=== PATIENT | female | born 1940 | race Caucasian/White ===

== ENCOUNTER 2018-04-26 15:16 | Emergency (ER) | payer MEDICARE, BC ==
[~2018-04-26] VITALS: Ht 170.2 cm; Wt 70.9 kg
[2018-04-26 15:42] LABS: BASOPHILS % (AUTO) 0.3 % (0-1); EOSINOPHILS # (AUTO) 0.4 X10'3 (0-0.9); EOSINOPHILS % (AUTO) 4.3 % (0-6); HEMATOCRIT 32.9 % (35.0-45.0); HEMOGLOBIN 10.8 g/dl (12.0-16.0); LYMPHOCYTES # (AUTO) 1.5 X10'3 (1.1-4.8); LYMPHOCYTES % (AUTO) 17.6 % (21-51); MEAN CORPUSCULAR HEMOGLOBIN 28.5 PG (27.0-31.0); MEAN CORPUSCULAR HGB CONC 32.8 % (33.0-36.5); MEAN CORPUSCULAR VOLUME 86.8 FL (78-98); MEAN PLATELET VOLUME 8.5 FL (7.4-10.4); MONOCYTES # (AUTO) 0.7 X10'3 (0-0.9); MONOCYTES % (AUTO) 8.5 % (2-12); NEUTROPHILS # (AUTO) 5.7 X10'3 (1.8-7.7); NEUTROPHILS % (AUTO) 69.3 % (42-75); PLATELET COUNT 312 X10'3 (140-440); RED BLOOD COUNT 3.79 X10'6 (4.20-5.60); RED CELL DISTRIBUTION WIDTH 13.3 % (11.5-14.5); WHITE BLOOD COUNT 8.3 X10'3 (4.5-11.0)
[2018-04-26 15:53] LABS: INR 1.1 INR; PARTIAL THROMBOPLASTIN TIME 31 SECONDS (22-32); PROTHROMBIN TIME 10.9 SECONDS (9.0-12.0)
[2018-04-26 16:00] LABS: ALANINE AMINOTRANSFERASE 25 U/L (12-78); ALBUMIN 2.8 G/DL (3.4-5.0); ALBUMIN/GLOBULIN RATIO 0.7 (1.1-1.5); ALKALINE PHOSPHATASE 85 IU/L (46-116); ANION GAP 10 (8-16); ASPARTATE AMINO TRANSFERASE 18 U/L (10-37); BILIRUBIN,TOTAL 0.4 MG/DL (0.1-1.0); BLOOD UREA NITROGEN 10 MG/DL (7-18); CALCIUM 9.2 MG/DL (8.5-10.1); CHLORIDE 99 MMOL/L (99-107); CREATININE 0.77 MG/DL (0.40-0.90); GLUCOSE 112 MG/DL (70-104); POTASSIUM 4.1 MMOL/L (3.5-5.1); SODIUM 136 MMOL/L (135-145); TOTAL CARBON DIOXIDE 27.4 MMOL/L (24-32); eGFR 72 ML/MIN
[2018-04-26 18:19] LABS: GLUCOSE,BODY FLUID 91 MG/DL; TOTAL PROTEIN,BODY FLUID 4.5 G/DL
[2018-04-26 18:32] LABS: BFAPPEAR BLOODY
[2018-04-26 18:33] LABS: BF RBC COUNT 109750 /CU MM; BF WBC COUNT 1650 /CU MM (0-1000); BFCOLOR RED; BFVOLUME 52 ML; LYMPHOCYTES,BODY FLUID 94 %; MONOCYTES,BODY FLUID 2 %; NEUTROPHILS,BODY FLUID 4 %
[2018-04-26 18:35] VITALS: BP 126/76
== END 2018-04-26 18:39 | disposition home or self-care (01) ==
LOC: ER 15:18
DX: J90 Pleural effusion, not elsewhere classified (principal); C34.90 Malignant neoplasm of unspecified part of unspecified bronchus or lung; Z90.89 Acquired absence of other organs; Z98.890 Other specified postprocedural states; Z90.49 Acquired absence of other specified parts of digestive tract; Z87.891 Personal history of nicotine dependence
CPT/HCPCS: 32555; 36415; 71045; 80053; 82945; 83605; 83986; 84145; 84157; 84439; 84443; 84484; 85025; 85610; 85730; 87040; 87070; 89051; 93005; 99285

== ENCOUNTER 2018-05-01 07:47 | Day surgery (SDC) | payer MEDICARE, BC ==
[~2018-05-01] VITALS: Ht 170.2 cm; Wt 67.1 kg
[2018-05-01 08:10] VITALS: BP 104/68
[2018-05-01] MEDS ORDERED: MULT-1133 PO (08:18)
[2018-05-01] MEDS ORDERED: CYAN1TAB41 PO (08:18)
[2018-05-01] MEDS ORDERED: LACT1CAP65 PO (08:18)
[2018-05-01] MEDS ORDERED: MAGN400C PO (08:18)
[2018-05-01] MEDS ORDERED: LIDOcaine 1%/PF 5ML 10 MG/ML VIAL SQ ONE (08:25)
[2018-05-01 08:41] VITALS: BP 112/77
== END 2018-05-01 09:05 | disposition home or self-care (01) ==
LOC: SSTAY O 07:47
PROVIDERS: ATTEND Radiology Vascular & Interventional Radiology
DX: J90 Pleural effusion, not elsewhere classified (principal); Z53.8 Procedure and treatment not carried out for other reasons; Z90.710 Acquired absence of both cervix and uterus; Z90.89 Acquired absence of other organs; Z87.891 Personal history of nicotine dependence; Z85.118 Personal history of other malignant neoplasm of bronchus and lung; Z79.899 Other long term (current) drug therapy; Z98.890 Other specified postprocedural states
CPT/HCPCS: 76604; J2001

== ENCOUNTER 2018-05-08 08:32 | Day surgery (SDC) | payer MEDICARE, BC ==
[~2018-05-08] VITALS: Ht 170.2 cm; Wt 67.9 kg
[~2018-05-08 08:32] MED LIST: CYAN1TAB41 PO; LACT1CAP65 PO; LIDOcaine 1%/PF 5ML 10 MG/ML VIAL SQ ONE; MAGN400C PO; MULT-1133 PO
[2018-05-08 08:55] VITALS: BP 114/71
[2018-05-08 09:30] VITALS: BP 114/71
[2018-05-08 09:35] VITALS: BP 125/86
[2018-05-08] MEDS ORDERED: CHOL100046 PO (09:43)
[2018-05-08] MEDS ORDERED: FISH12002 PO (09:43)
[2018-05-08 09:54] VITALS: BP 120/79
== END 2018-05-08 09:55 | disposition home or self-care (01) ==
LOC: SSTAY O 08:32
PROVIDERS: ATTEND Radiology Diagnostic Radiology
DX: C34.92 Malignant neoplasm of unspecified part of left bronchus or lung (principal); Z85.118 Personal history of other malignant neoplasm of bronchus and lung; Z90.710 Acquired absence of both cervix and uterus; Z79.899 Other long term (current) drug therapy; Z87.891 Personal history of nicotine dependence; Z90.49 Acquired absence of other specified parts of digestive tract
CPT/HCPCS: 32555; 71045; J2001

== ENCOUNTER 2019-04-14 09:46 | Inpatient (IN) | payer MEDICARE, BC ==
[~2019-04-14] VITALS: Ht 170.2 cm; Wt 72.0 kg
[~2019-04-14 09:46] MED LIST changes: +CHOL100046 PO; +FISH12002 PO; -LIDOcaine 1%/PF 5ML 10 MG/ML VIAL SQ ONE
[2019-04-14] MEDS ORDERED: normal saline 1000ML IV soln IVB ONE (10:00)
[2019-04-14] MEDS ORDERED: famotidine/PF 10 mg/ml inj IV ONE (10:00)
[2019-04-14] MEDS ORDERED: diphenhydrAMINE 50 mg/ml inj IV ONE (10:00)
[2019-04-14 11:07] LABS: BASOPHILS # (AUTO) 0.1 X10'3 (0-0.2); BASOPHILS % (AUTO) 0.7 % (0-1); HEMOGLOBIN 7.3 g/dl (12.0-16.0); LYMPHOCYTES # (AUTO) 1.2 X10'3 (1.1-4.8); MEAN PLATELET VOLUME 8.9 FL (7.4-10.4); MONOCYTES # (AUTO) 0.4 X10'3 (0-0.9); NEUTROPHILS # (AUTO) 7.6 X10'3 (1.8-7.7); WHITE BLOOD COUNT 9.4 X10'3 (4.5-11.0)
[2019-04-14 11:09] LABS: EOSINOPHILS % (AUTO) 0.5 % (0-6); HEMATOCRIT 22.4 % (35.0-45.0); LYMPHOCYTES % (AUTO) 12.7 % (21-51); MEAN CORPUSCULAR HEMOGLOBIN 36.1 PG (27.0-31.0); MEAN CORPUSCULAR HGB CONC 32.5 g/dL (33.0-36.5); MEAN CORPUSCULAR VOLUME 111.1 FL (78-98); MONOCYTES % (AUTO) 4.7 % (2-12); NEUTROPHILS % (AUTO) 81.4 % (42-75); PLATELET COUNT 225 X10'3 (140-440); RED BLOOD COUNT 2.02 X10'6 (4.20-5.60); RED CELL DISTRIBUTION WIDTH 12.7 % (11.5-14.5)
[2019-04-14 11:30] LABS: ALANINE AMINOTRANSFERASE 32 U/L (12-78); ALBUMIN 3.5 G/DL (3.4-5.0); ALBUMIN/GLOBULIN RATIO 1.2 (1.1-1.5); ALKALINE PHOSPHATASE 42 IU/L (46-116); ANION GAP 8 (8-16); ASPARTATE AMINO TRANSFERASE 19 U/L (10-37); BILIRUBIN,TOTAL 0.6 MG/DL (0.1-1.0); BLOOD UREA NITROGEN 21 MG/DL (7-18); BUN/CREATININE RATIO 9.9 (6.6-38.0); CHLORIDE 104 MMOL/L (99-107); CREATININE 2.13 MG/DL (0.40-0.90); GLUCOSE 102 MG/DL (70-104); POTASSIUM 3.7 MMOL/L (3.5-5.1); SODIUM 139 MMOL/L (135-145); TOTAL CARBON DIOXIDE 26.9 MMOL/L (24-32); TOTAL PROTEIN 6.4 G/DL (6.4-8.2); eGFR 22 ML/MIN
[2019-04-14 11:36] LABS: PLATELET ESTIMATE NORMAL
[2019-04-14 11:40] LABS: HYPOCHROMASIA 1+
[2019-04-14] MEDS ORDERED: methylPREDNISolone sod succ 125mg/2ml vial IV ONE (12:15)
[2019-04-14 12:29] LABS: CLARITY,URINE CLEAR (Clear); COLOR,URINE YELLOW (Yellow); GLUCOSE, URINE NEGATIVE (Neg); KETONES,URINE NEGATIVE (Neg); LEUKOCYTE ESTERASE ,URINE SMALL (Neg); NITRITES, URINE NEGATIVE (Neg); OCCULT BLOOD,URINE NEGATIVE (Neg); PH,URINE 7.5 (4.8-8.0); PROTEIN,URINE NEGATIVE (Neg); UA COLLECTION TYPE CLN CATCH MIDSTREAM; UROBILINOGEN,URINE 0.2 E.U/dL (0.2-1.0)
[2019-04-14 12:37] LABS: BACTERIA,URINE FEW /HPF (Neg); MUCUS STRANDS NONE SEEN /LPF (Neg); RBC,URINE NONE SEEN /HPF (0-2); SQUAMOUS EPITHELIAL CELL,UR FEW /LPF (FEW); WBC,URINE 0-4 /HPF (0-4)
[2019-04-14] MEDS ORDERED: MULT-1180 PO (13:54)
[2019-04-14] MEDS ORDERED: DAPS100T2 PO (13:56)
[2019-04-14] MEDS ORDERED: LORA10TA7 PO (13:56)
[2019-04-14] MEDS ORDERED: MAGN400C PO (13:57)
[2019-04-14] MEDS ORDERED: POLY17PO10 PO (13:58)
[2019-04-14] MEDS ORDERED: OMEP20CA11 PO (13:59)
[2019-04-14] MEDS ORDERED: LACT1CAP65 PO (14:00)
[2019-04-14] MEDS ORDERED: CHOL10002 PO (14:01)
[2019-04-14] MEDS ORDERED: SODI650T29 PO (14:01)
[2019-04-14] MEDS ORDERED: WHEA98PO PO (14:02)
[2019-04-14] MEDS ORDERED: PRED10TA23 PO ×2 (14:07→14:12)
[2019-04-14] MEDS ORDERED: PRED5TAB49 PO (14:13)
[2019-04-14] MEDS ORDERED: FURO-150 PO (14:19)
[2019-04-14] MEDS ORDERED: magnesium 4gm in 100ml NS 100 ML IV PRN (14:20)
[2019-04-14] MEDS ORDERED: HYDROcodone/acetaminophen 5mg/325mg tablet PO PRN (14:20)
[2019-04-14] MEDS ORDERED: diphenhydrAMINE 50 mg/ml inj IV PRN (14:20)
[2019-04-14] MEDS: K and/or MAG REPLACEMENT MC SCH (14:20)
[2019-04-14] MEDS ORDERED: HYDROcodone/acetaminophen 10/325mg tab PO PRN (14:20)
[2019-04-14] MEDS ORDERED: magnesium Cl slow-release 64mg tablet PO PRN (14:20)
[2019-04-14] MEDS ORDERED: morphine 2 MG/ML inj. syringe IV PRN ×2 (14:20)
[2019-04-14] MEDS ORDERED: acetaminophen 325mg tablet PO PRN ×2 (14:20)
[2019-04-14] MEDS ORDERED: mag hydrox/Alum hydrox/simeth 30ml oral suspension PO PRN (14:20)
[2019-04-14] MEDS ORDERED: potassium Cl 40MEQ/NS 500ml 500 ML IV PRN (14:20)
[2019-04-14] MEDS ORDERED: magnesium 2GM in 50ml NS 50 ML IV PRN (14:20)
[2019-04-14] MEDS ORDERED: potassium Cl 20 mEq SR tablet PO PRN ×2 (14:20)
[2019-04-14] MEDS ORDERED: potassium CL 10mEq/100ml bag 100 ML IV PRN (14:20)
[2019-04-14] MEDS ORDERED: ondansetron/PF 4mg/2ml inj IV PRN (14:20)
[2019-04-14] MEDS ORDERED: magnesium hydroxide 30ml (MOM) UD suspension PO PRN (14:20)
[2019-04-14] MEDS ORDERED: diphenhydrAMINE 25mg capsule PO PRN (14:20)
[2019-04-14] MEDS ORDERED: ACET500C5 PO (14:22)
[2019-04-14] MEDS ORDERED: ONDA8TAB12 PO (14:23)
[2019-04-14] MEDS ORDERED: BISM262T15 PO (14:24)
[2019-04-14] MEDS ORDERED: DOCU100T9 PO (14:25)
[2019-04-14] MEDS ORDERED: bismuth subsalicylate 262mg chew tablet PO PRN (14:30)
[2019-04-14] MEDS ORDERED: non-formulary drug (Ondansetron HCl 1 TAB) PO PRN (14:30)
[2019-04-14] MEDS ORDERED: non-formulary drug (Acetaminophen (Mapap) 1 CAP) PO PRN (14:30)
[2019-04-14] MEDS ORDERED: DOCUSATE SODIUM PO PRN (14:30)
[2019-04-14] MEDS ORDERED: ondansetron 4mg rapidly disintigrating tab PO PRN (14:35)
[2019-04-14] MEDS ORDERED: psyllium seed 3.4 gm packet PO PRN (14:35)
[2019-04-14] MEDS ORDERED: docusate sod 100mg capsule PO PRN (14:40)
[2019-04-14] MEDS: normal saline 1000ml 1,000 ML IV SCH (15:23)
--- NOTE | 2019-04-14 17:24 | NUR ---
Patient arrived to room 347A. Oriented to call light, bed controls, TV. Received report from charge nurse Tequila MCKEE.
[2019-04-14 17:34] VITALS: BP 147/84
[2019-04-14] MEDS: diphenhydrAMINE 25mg capsule PO SCH (17:38)
--- NOTE | 2019-04-14 18:31 | NUR ---
Problems reprioritized. Patient report given, questions answered & plan of care reviewed with Analy MCKEE.
[2019-04-14 20:00] VITALS: BP 143/75
[2019-04-14] MEDS ORDERED: famotidine 10mg/ml inj IV SCH (20:00)
[2019-04-14] MEDS ORDERED: temazepam 15mg capsule PO PRN (21:00)
[2019-04-14] MEDS: methylPREDNISolone sod succ 125mg/2ml vial IV SCH (21:11)
[2019-04-14] MEDS: sodium bicarbonate 650mg tablet PO SCH (21:11)
[2019-04-14] MEDS: heparin, porcine 5000 units/ml vial SQ SCH (21:11)
[2019-04-15] VITALS (16 sets, daily range): BP systolic 136–194; BP diastolic 70–108
[2019-04-15] MEDS: diphenhydrAMINE 25mg capsule PO SCH ×3 (00:34→15:47)
[2019-04-15] MEDS: normal saline 1000ml 1,000 ML IV SCH ×3 (01:40→11:08)
[2019-04-15] MEDS: methylPREDNISolone sod succ 125mg/2ml vial IV SCH ×4 (01:40→20:47)
[2019-04-15 05:13] LABS: EOSINOPHILS % (AUTO) 0.1 % (0-6); HEMOGLOBIN 7.1 g/dl (12.0-16.0); LYMPHOCYTES # (AUTO) 1.1 X10'3 (1.1-4.8); MEAN PLATELET VOLUME 9.6 FL (7.4-10.4); MONOCYTES # (AUTO) 0.1 X10'3 (0-0.9); RED BLOOD COUNT 1.95 X10'6 (4.20-5.60)
[2019-04-15 05:14] LABS: BASOPHILS % (AUTO) 0.6 % (0-1); LYMPHOCYTES % (AUTO) 24.6 % (21-51); MEAN CORPUSCULAR HEMOGLOBIN 36.5 PG (27.0-31.0); MEAN CORPUSCULAR HGB CONC 32.7 g/dL (33.0-36.5); MEAN CORPUSCULAR VOLUME 111.8 FL (78-98); MONOCYTES % (AUTO) 1.8 % (2-12); NEUTROPHILS # (AUTO) 3.3 X10'3 (1.8-7.7); NEUTROPHILS % (AUTO) 72.9 % (42-75); PLATELET COUNT 210 X10'3 (140-440); WHITE BLOOD COUNT 4.5 X10'3 (4.5-11.0)
[2019-04-15 05:21] LABS: ALANINE AMINOTRANSFERASE 31 U/L (12-78); ALBUMIN 3.3 G/DL (3.4-5.0); ALBUMIN/GLOBULIN RATIO 1.1 (1.1-1.5); ALKALINE PHOSPHATASE 43 IU/L (46-116); ANION GAP 10 (8-16); ASPARTATE AMINO TRANSFERASE 14 U/L (10-37); BILIRUBIN,TOTAL 0.4 MG/DL (0.1-1.0); BLOOD UREA NITROGEN 24 MG/DL (7-18); BUN/CREATININE RATIO 11.9 (6.6-38.0); CALCIUM 8.3 MG/DL (8.5-10.1); CHLORIDE 106 MMOL/L (99-107); CREATININE 2.01 MG/DL (0.40-0.90); GLUCOSE 154 MG/DL (70-104); MAGNESIUM 2.2 MG/DL (1.5-2.4); PHOSPHORUS 4.3 MG/DL (2.3-4.5); POTASSIUM 4.1 MMOL/L (3.5-5.1); SODIUM 141 MMOL/L (135-145); TOTAL CARBON DIOXIDE 25.2 MMOL/L (24-32); TOTAL PROTEIN 6.4 G/DL (6.4-8.2); eGFR 24 ML/MIN
[2019-04-15 05:36] LABS: HEMATOCRIT 21.8 % (35.0-45.0)
--- NOTE | 2019-04-15 05:50 | NUR ---
CRITICAL HEMATOCRIT OF 21.8. DR. CHERRY NOTIFIED.
--- NOTE | 2019-04-15 06:15 | NUR ---
Patient in room [facility] 347. I have received report from Analy MCKEE and had the opportunity to ask questions and assume patient care.
[2019-04-15] MEDS ORDERED: pantoprazole 40mg Tablet.DR PO SCH (07:30)
[2019-04-15 07:42] LABS: FERRITIN 379 NG/ML (8-252)
[2019-04-15] MEDS: K and/or MAG REPLACEMENT MC SCH (07:43)
[2019-04-15] MEDS: lactobacillus rhamnosus 10,000 MMU CELLS/CAPSULE PO SCH (07:47)
[2019-04-15] MEDS: CefTRIAXone/D5W-Rocephin 1gm 50 ML IV SCH (07:47)
[2019-04-15] MEDS: magnesium oxide 400mg tablet PO SCH (07:48)
[2019-04-15] MEDS: loratadine 10mg tablet PO SCH (07:48)
[2019-04-15] MEDS: sodium bicarbonate 650mg tablet PO SCH ×3 (07:48→20:56)
[2019-04-15] MEDS: ferrous sulfate 325mg tablet PO SCH ×2 (07:48→20:56)
[2019-04-15] MEDS: vitamin D (cholecalciferol) 1,000 unit tablet PO SCH (07:49)
[2019-04-15] MEDS: multivitamins, therapeutics tablet PO SCH (07:49)
[2019-04-15] MEDS: heparin, porcine 5000 units/ml vial SQ SCH (07:51)
[2019-04-15] MEDS ORDERED: non-formulary drug (Cholecalciferol (Vitamin D3) (Vitamin D3) 1 TAB) PO SCH (08:00)
[2019-04-15] MEDS ORDERED: MULTIVITAMIN PO SCH (08:00)
[2019-04-15] MEDS ORDERED: FOLIC ACID PO SCH (08:00)
[2019-04-15] MEDS ORDERED: non-formulary drug (Omeprazole 1 CAP) PO SCH (08:00)
[2019-04-15] MEDS ORDERED: IRON PO SCH (08:00)
[2019-04-15] MEDS ORDERED: non-formulary drug (Lactobacillus Acidophilus (Probiotic) 1 CAP) PO SCH (08:00)
[2019-04-15] MEDS ORDERED: non-formulary drug (Magnesium Oxide (Magnesium) 1 CAP) PO SCH (08:00)
[2019-04-15] MEDS ORDERED: famotidine 10mg/ml inj IV SCH (08:00)
[2019-04-15] MEDS: DAPSONE 100 MG TABLET PO SCH (08:04)
[2019-04-15] MEDS: saliva stimulant agent 45ml spray MM SCH ×3 (13:16→21:00)
[2019-04-15 13:25] LABS: RED BLOOD COUNT 2.1 X10'6 (4.20-5.60); RETICULOCYTE % (AUTO) 4.8 % (0.5-1.5)
[2019-04-15 13:53] LABS: % IRON SATURATION 24 % (11-46); IRON 69 UG/DL (49-151); TOTAL IRON BINDING CAPACITY 292 UG/DL (259-388)
[2019-04-15] MEDS ORDERED: MIDAZolam 5mg/5ml vial ONE (17:23)
[2019-04-15] MEDS ORDERED: LIDOcaine Viscous 15ml cup ONE (17:23)
[2019-04-15] MEDS ORDERED: fentaNYL/PF 50MCG/1 ML 2ML syringe ONE (17:23)
--- NOTE | 2019-04-15 18:29 | NUR ---
Problems reprioritized. Patient report given, questions answered & plan of care reviewed with Yaz MCKEE.
--- NOTE | 2019-04-15 18:30 | NUR ---
I have received report from WALLY MCKEE and had the opportunity to ask questions and assume patient care. PATIENT IN GI LAB FOR EGD AT THIS TIME.
--- NOTE | 2019-04-15 19:00 | NUR ---
PATIENT CAME BACK TO ROOM 345A FROM GI LAB AFTER EGD WAS DONE. PLACED COMFORTABLE IN BED. VITAL SIGNS MONITORED.
[2019-04-15] MEDS ORDERED: pantoprazole 40 MG vial IV SCH (20:00)
[2019-04-15] MEDS: ESOMEPRAZOLE 40 MG VIAL IV SCH (20:51)
[2019-04-15] MEDS: famotidine/PF 10 mg/ml inj IV SCH (21:31)
--- NOTE | 2019-04-15 22:50 | NUR ---
CALLED DR. HUSAIN ABOUT HIGH BP 180/111 AND IT STARTED WHEN HE CAME BACK FROM GI LAB HER BP WAS 193/106 BUT WENT DOWN TO BP 162/90 AND WENT UP AGAIN THIS TIME. NO NEW ORDERS MADE JUST MONITOR.
[2019-04-16] VITALS: BP 180/111
[2019-04-16] MEDS: diphenhydrAMINE 25mg capsule PO SCH ×2 (00:19→08:27)
[2019-04-16] MEDS: normal saline 1000ml 1,000 ML IV SCH (06:01)
[2019-04-16 06:12] LABS: BASOPHILS # (AUTO) 0.1 X10'3 (0-0.2); BASOPHILS % (AUTO) 0.6 % (0-1); EOSINOPHILS % (AUTO) 0 % (0-6); HEMATOCRIT 24.1 % (35.0-45.0); HEMOGLOBIN 8.1 g/dl (12.0-16.0); LYMPHOCYTES # (AUTO) 1.3 X10'3 (1.1-4.8); LYMPHOCYTES % (AUTO) 12.5 % (21-51); MEAN CORPUSCULAR HEMOGLOBIN 35.1 PG (27.0-31.0); MEAN CORPUSCULAR HGB CONC 33.5 g/dL (33.0-36.5); MEAN CORPUSCULAR VOLUME 104.9 FL (78-98); MEAN PLATELET VOLUME 9.1 FL (7.4-10.4); MONOCYTES # (AUTO) 0.6 X10'3 (0-0.9); MONOCYTES % (AUTO) 5.9 % (2-12); NEUTROPHILS # (AUTO) 8.7 X10'3 (1.8-7.7); PLATELET COUNT 221 X10'3 (140-440); RED CELL DISTRIBUTION WIDTH 16.8 % (11.5-14.5); WHITE BLOOD COUNT 10.7 X10'3 (4.5-11.0)
--- NOTE | 2019-04-16 06:25 | NUR ---
Problems reprioritized. Patient report given, questions answered & plan of care reviewed with HUSAM MCKEE.
--- NOTE | 2019-04-16 06:26 | NUR ---
Patient in room [facility] 347. I have received report from Yaz MCKEE and had the opportunity to ask questions and assume patient care.
[2019-04-16 06:48] LABS: ALANINE AMINOTRANSFERASE 28 U/L (12-78); ALBUMIN 3.1 G/DL (3.4-5.0); ALBUMIN/GLOBULIN RATIO 1.1 (1.1-1.5); ALKALINE PHOSPHATASE 37 IU/L (46-116); ANION GAP 12 (8-16); ASPARTATE AMINO TRANSFERASE 16 U/L (10-37); BILIRUBIN,TOTAL 0.5 MG/DL (0.1-1.0); BLOOD UREA NITROGEN 25 MG/DL (7-18); BUN/CREATININE RATIO 13.5 (6.6-38.0); CALCIUM 8.1 MG/DL (8.5-10.1); CHLORIDE 106 MMOL/L (99-107); CREATININE 1.85 MG/DL (0.40-0.90); GLUCOSE 143 MG/DL (70-104); MAGNESIUM 2.1 MG/DL (1.5-2.4); PHOSPHORUS 3.7 MG/DL (2.3-4.5); POTASSIUM 3.7 MMOL/L (3.5-5.1); SODIUM 141 MMOL/L (135-145); TOTAL CARBON DIOXIDE 22.6 MMOL/L (24-32); TOTAL PROTEIN 5.9 G/DL (6.4-8.2); eGFR 26 ML/MIN
[2019-04-16 07:27] VITALS: BP 180/111
[2019-04-16] MEDS: K and/or MAG REPLACEMENT MC SCH (08:00)
[2019-04-16] MEDS: sodium bicarbonate 650mg tablet PO SCH ×2 (08:26→12:42)
[2019-04-16] MEDS: CefTRIAXone/D5W-Rocephin 1gm 50 ML IV SCH (08:26)
[2019-04-16] MEDS: lactobacillus rhamnosus 10,000 MMU CELLS/CAPSULE PO SCH (08:27)
[2019-04-16] MEDS: famotidine/PF 10 mg/ml inj IV SCH (08:27)
[2019-04-16] MEDS: ferrous sulfate 325mg tablet PO SCH (08:27)
[2019-04-16] MEDS: multivitamins, therapeutics tablet PO SCH (08:27)
[2019-04-16] MEDS: loratadine 10mg tablet PO SCH (08:27)
[2019-04-16] MEDS: magnesium oxide 400mg tablet PO SCH (08:27)
[2019-04-16] MEDS: vitamin D (cholecalciferol) 1,000 unit tablet PO SCH (08:27)
[2019-04-16] MEDS: methylPREDNISolone sod succ 125mg/2ml vial IV SCH (08:32)
[2019-04-16] MEDS: ESOMEPRAZOLE 40 MG VIAL IV SCH (08:36)
[2019-04-16] MEDS: saliva stimulant agent 45ml spray MM SCH ×2 (08:40→12:43)
[2019-04-16] MEDS: DAPSONE 100 MG TABLET PO SCH (08:41)
[2019-04-16] MEDS ORDERED: amLODIPine 5mg tablet PO ONE (12:30)
[2019-04-16] MEDS ORDERED: CEFD300C3 PO (12:40)
[2019-04-16] MEDS ORDERED: SALI45SP MM (12:40)
[2019-04-16] MEDS ORDERED: DIPH-423 PO (12:40)
[2019-04-16] MEDS ORDERED: NOR5T PO (12:40)
[2019-04-16] MEDS ORDERED: LACT1CAP26 PO (12:40)
[2019-04-16] MEDS ORDERED: FER325T PO (12:40)
[2019-04-16] MEDS ORDERED: PROP10TA10 PO (12:44)
[2019-04-16] MEDS ORDERED: propranolol 10mg tablet PO ONE (13:00)
[2019-04-16 13:10] VITALS: BP 167/102
--- NOTE | 2019-04-16 13:15 | NUR ---
Patient had straight cath ordered yesterday, Dr. Ibarra made this RN aware and stated "don't do it now, she's going to be discharged". Patient to be discharged back to the [facility].
--- NOTE | 2019-04-16 14:19 | NUR ---
[facility] bedside service notified of patients discharge orders. Issues have come up concerning patients insurance for medications.
--- NOTE | 2019-04-16 15:08 | NUR ---
O2 Sat at rest on room air: 90% If below 89%: Recovery O2 Sat at rest on ___LPM:___%:___% via (mask/nasal cannula, etc..) No further documentation is necessary. If O2 Sat did not drop below 89% on room air,ambulate patient on room air. O2 Sat while ambulating on room air 93% Recovery O2 Sat while ambulating on ___LPM:___% No further documentation is necessary. If patient does not drop below 89% while ambulating, he/she does not qualify for home O2.
--- NOTE | 2019-04-16 15:19 | NUR ---
Discharged patient by to [facility] with staff volunteer. A&Ox4. VSS. Education completed on all medications and follow up appointments. Patient has appointment at [facility] on April 24 currently made. Jan berg delivered home meds to bedside
[2019-04-16] MEDS ORDERED: pantoprazole 40mg Tablet.DR PO SCH (17:00)
[2019-04-17] MEDS ORDERED: amLODIPine 5mg tablet PO SCH (08:00)
== END 2019-04-16 15:20 | disposition home health service (06) | DRG 181 ==
LOC: ER 09:47 → SUR 3N 16:12 → EDBEDREQ 16:23 → CMPBEDREQ 19:48
PROVIDERS: ADMIT Family Medicine; ATTEND Family Medicine
PROC: 0DJ08ZZ Inspection of Upper Intestinal Tract, Via Natural or Artificial Opening Endoscopic (ICD-10-PCS; principal; 2019-04-15)
PROC: 30233N1 Transfusion of Nonautologous Red Blood Cells into Peripheral Vein, Percutaneous Approach (ICD-10-PCS; 2019-04-15)
DX: C34.90 Malignant neoplasm of unspecified part of unspecified bronchus or lung (principal); N17.9 Acute kidney failure, unspecified; N39.0 Urinary tract infection, site not specified; D53.9 Nutritional anemia, unspecified; L50.9 Urticaria, unspecified; D63.8 Anemia in other chronic diseases classified elsewhere; I95.1 Orthostatic hypotension; N18.9 Chronic kidney disease, unspecified; I12.9 Hypertensive chronic kidney disease with stage 1 through stage 4 chronic kidney disease, or unspecified chronic kidney disease; Z66 Do not resuscitate; Z79.899 Other long term (current) drug therapy; Z80.42 Family history of malignant neoplasm of prostate; Z90.49 Acquired absence of other specified parts of digestive tract; Z90.710 Acquired absence of both cervix and uterus; Z90.722 Acquired absence of ovaries, bilateral; Z98.891 History of uterine scar from previous surgery; Z87.891 Personal history of nicotine dependence
CPT/HCPCS: 36415; 71045; 76937; 80053; 81001; 82607; 82728; 82746; 83540; 83550; 83735; 84100; 84443; 85025; 85045; 85610; 86885; 86900; 86901; 86920; 87040; 87077; 87081; 87088; 87186; 93005; 96361; 96374; 96375; 97110; 97116; 97161; 97530; 99152; 99285; A4620; G0378; J0696; J1200; J1644; J2250; J2930; J3010; J3490; J7030; J7040; P9016; Q0163

== ENCOUNTER 2019-06-16 20:49 | Inpatient (IN) | payer MEDICARE, BC ==
[~2019-06-16] VITALS: Ht 172.7 cm; Wt 72.7 kg
[~2019-06-16 20:49] MED LIST changes: +ACET500C5 PO; +BISM262T15 PO; +CHOL10002 PO; -CHOL100046 PO; -CYAN1TAB41 PO; +DAPS100T2 PO; +DIPH-423 PO; +DOCU100T9 PO; +FER325T PO; -FISH12002 PO; +LACT1CAP26 PO; +LORA10TA7 PO; -MULT-1133 PO; +MULT-1180 PO; +NOR5T PO; +OMEP20CA11 PO; +ONDA8TAB12 PO; +POLY17PO10 PO; +PRED10TA23 PO; +PRED5TAB49 PO; +PROP10TA10 PO; +SALI45SP MM; +SODI650T29 PO; +WHEA98PO PO
[2019-06-16 21:51] LABS: BASOPHILS # (AUTO) 0.1 X10'3 (0-0.2); BASOPHILS % (AUTO) 0.9 % (0-1); EOSINOPHILS # (AUTO) 0.2 X10'3 (0-0.9); EOSINOPHILS % (AUTO) 1.6 % (0-6); HEMATOCRIT 26.3 % (35.0-45.0); HEMOGLOBIN 8.7 g/dl (12.0-16.0); LYMPHOCYTES # (AUTO) 1.7 X10'3 (1.1-4.8); LYMPHOCYTES % (AUTO) 15.6 % (21-51); MEAN CORPUSCULAR VOLUME 99.8 FL (78-98); MEAN PLATELET VOLUME 9.9 FL (7.4-10.4); MONOCYTES # (AUTO) 1.8 X10'3 (0-0.9); MONOCYTES % (AUTO) 16.4 % (2-12); NEUTROPHILS # (AUTO) 7.3 X10'3 (1.8-7.7); NEUTROPHILS % (AUTO) 65.5 % (42-75); PLATELET COUNT 173 X10'3 (140-440); RED BLOOD COUNT 2.64 X10'6 (4.20-5.60); RED CELL DISTRIBUTION WIDTH 16.9 % (11.5-14.5); WHITE BLOOD COUNT 11.1 X10'3 (4.5-11.0)
[2019-06-16 22:06] LABS: ALANINE AMINOTRANSFERASE 43 U/L (12-78); ALBUMIN 3.6 G/DL (3.4-5.0); ALKALINE PHOSPHATASE 54 IU/L (46-116); ANION GAP 10 (8-16); ASPARTATE AMINO TRANSFERASE 28 U/L (10-37); BILIRUBIN,TOTAL 0.3 MG/DL (0.1-1.0); BLOOD UREA NITROGEN 29 MG/DL (7-18); BUN/CREATININE RATIO 10.7 (6.6-38.0); CHLORIDE 103 MMOL/L (99-107); CREATININE 2.71 MG/DL (0.40-0.90); GLUCOSE 119 MG/DL (70-104); POTASSIUM 4.8 MMOL/L (3.5-5.1); SODIUM 137 MMOL/L (135-145); TOTAL CARBON DIOXIDE 23.8 MMOL/L (24-32); TOTAL PROTEIN 7.2 G/DL (6.4-8.2); eGFR 17 ML/MIN
[2019-06-16] MEDS ORDERED: piperacillin/tazo 3.375gm/50ml 50 ML IV ONE (22:40)
[2019-06-16] MEDS ORDERED: normal saline 1000ML IV soln IV ONE (22:40)
[2019-06-16 23:01] LABS: CLARITY,URINE SLIGHTLY CLOUDY (Clear); COLOR,URINE YELLOW (Yellow); GLUCOSE, URINE NEGATIVE (Neg); KETONES,URINE NEGATIVE (Neg); LEUKOCYTE ESTERASE ,URINE LARGE (Neg); NITRITES, URINE NEGATIVE (Neg); OCCULT BLOOD,URINE TRACE-INTACT (Neg); PH,URINE 7.5 (4.8-8.0); PROTEIN,URINE 30 mg/dl (Neg); UROBILINOGEN,URINE 0.2 E.U/dL (0.2-1.0)
[2019-06-16 23:10] LABS: UA COLLECTION TYPE CLN CATCH MIDSTREAM
[2019-06-16 23:11] LABS: PARTIAL THROMBOPLASTIN TIME 24 SECONDS (22-32)
[2019-06-16 23:31] LABS: BACTERIA,URINE 1+ /HPF (Neg); RBC,URINE 0-2 /HPF (0-2); WBC,URINE 50-100 /HPF (0-4)
[2019-06-16 23:32] LABS: MUCUS STRANDS NONE SEEN /LPF (Neg); SQUAMOUS EPITHELIAL CELL,UR MODERATE /LPF (FEW)
[2019-06-17] VITALS (7 sets, daily range): BP systolic 95–120; BP diastolic 54–70
--- NOTE | 2019-06-17 | NUR ---
PT AWAITING HOSPITALIST. VSS, AFEBRILE, DAUGHTER REMAINS AT BEDSIDE.
[2019-06-17] MEDS ORDERED: magnesium 4gm in 100ml NS 100 ML IV PRN (00:30)
[2019-06-17] MEDS ORDERED: magnesium hydroxide 30ml (MOM) UD suspension PO PRN (00:30)
[2019-06-17] MEDS ORDERED: magnesium 2GM in 50ml NS 50 ML IV PRN (00:30)
[2019-06-17] MEDS ORDERED: ondansetron/PF 4mg/2ml inj IV PRN (00:30)
[2019-06-17] MEDS ORDERED: potassium CL 10mEq/100ml bag 100 ML IV PRN ×2 (00:30)
[2019-06-17] MEDS ORDERED: magnesium Cl slow-release 64mg tablet PO PRN (00:30)
[2019-06-17] MEDS ORDERED: acetaminophen 325mg tablet PO PRN ×2 (00:30)
[2019-06-17] MEDS ORDERED: mag hydrox/Alum hydrox/simeth 30ml oral suspension PO PRN (00:30)
[2019-06-17] MEDS ORDERED: potassium Cl 20 mEq SR tablet PO PRN ×2 (00:30)
--- NOTE | 2019-06-17 00:33 | NUR ---
placed on bp and voiding. boosted ni the bed. awaiting hospitalist.
--- NOTE | 2019-06-17 01:10 | NUR ---
Patient in room . I have received report from Mireille MCKEE and had the opportunity to ask questions and assume patient care.
--- NOTE | 2019-06-17 01:15 | NUR ---
Patient up to the PCU unit at this time into room 3009 arriving from the ED. She was transferred from the [facility] to the bed via slide board. She is alert and oriented and able to make her needs known. Daughter is with her at bedside. She is on room air. Vitals are stable. She is on NS at 100mls/hour. Cellulitis noted to BLE and pictures are taken and put in chart. Dr. Gaspar up to see patient and gather more of her health history. Patient able to answer questions appropriately. She is taught how to use the call light system. Will continue to monitor.
[2019-06-17] MEDS: normal saline 1000ml 1,000 ML IV SCH ×2 (01:22→11:03)
--- NOTE | 2019-06-17 06:00 | NUR ---
Patient in room PCU 3009. I have received report from Michelle MCKEE/Mercy MCKEE and had the opportunity to ask questions and assume patient care.
[2019-06-17 06:19] LABS: BASOPHILS # (AUTO) 0.1 X10'3 (0-0.2); EOSINOPHILS # (AUTO) 0.3 X10'3 (0-0.9); HEMATOCRIT 23.6 % (35.0-45.0); HEMOGLOBIN 7.8 g/dl (12.0-16.0); LYMPHOCYTES # (AUTO) 1.6 X10'3 (1.1-4.8); LYMPHOCYTES % (AUTO) 18.7 % (21-51); MEAN CORPUSCULAR HEMOGLOBIN 33.3 PG (27.0-31.0); MEAN CORPUSCULAR HGB CONC 33.1 g/dL (33.0-36.5); MEAN CORPUSCULAR VOLUME 100.3 FL (78-98); MEAN PLATELET VOLUME 10.6 FL (7.4-10.4); MONOCYTES # (AUTO) 1.5 X10'3 (0-0.9); MONOCYTES % (AUTO) 17.6 % (2-12); NEUTROPHILS # (AUTO) 5.2 X10'3 (1.8-7.7); NEUTROPHILS % (AUTO) 59.7 % (42-75); PLATELET COUNT 169 X10'3 (140-440); RED BLOOD COUNT 2.35 X10'6 (4.20-5.60); RED CELL DISTRIBUTION WIDTH 16.6 % (11.5-14.5); WHITE BLOOD COUNT 8.6 X10'3 (4.5-11.0)
--- NOTE | 2019-06-17 06:22 | NUR ---
Problems reprioritized. Patient report given, questions answered & plan of care reviewed with Svitlana MCKEE.
--- NOTE | 2019-06-17 06:22 | NUR ---
[place] documentation: I have reviewed and agree with all interventions, assessments performed and documented by Mercy MCKEE. [facility] Medication Administration: For this medication-pass time frame, all medication were reviewed, dispensed, administered and documented per hospital policy by Mercy MCKEE.
[2019-06-17 06:47] LABS: ALBUMIN 2.9 G/DL (3.4-5.0); ANION GAP 9 (8-16); BLOOD UREA NITROGEN 24 MG/DL (7-18); BUN/CREATININE RATIO 9.8 (6.6-38.0); CALCIUM 8.3 MG/DL (8.5-10.1); CHLORIDE 110 MMOL/L (99-107); CREATININE 2.46 MG/DL (0.40-0.90); GLUCOSE 88 MG/DL (70-104); MAGNESIUM 2.3 MG/DL (1.5-2.4); POTASSIUM 4.3 MMOL/L (3.5-5.1); SODIUM 143 MMOL/L (135-145); TOTAL CARBON DIOXIDE 23.6 MMOL/L (24-32); eGFR 19 ML/MIN
[2019-06-17 07:15] LABS: TOTAL CELLS COUNTED 100
[2019-06-17 07:16] LABS: ANISOCYTOSIS 1+; LARGE PLATELETS FEW; PLATELET ESTIMATE NORMAL
[2019-06-17] MEDS: K and/or MAG REPLACEMENT MC SCH (08:00)
[2019-06-17] MEDS: heparin, porcine 5000 units/ml vial SQ SCH ×2 (08:47→19:24)
[2019-06-17] MEDS ORDERED: prednisone 10mg tablet PO SCH (10:50)
[2019-06-17] MEDS ORDERED: furosemide 40mg/4ml inj IV ONE (11:50)
[2019-06-17] MEDS ORDERED: AMLO5TAB PO (12:01)
--- NOTE | 2019-06-17 12:05 | NUR ---
Page to Dr Martin re: Room 5288 [facility] rec completed please address, [phone]
[2019-06-17] MEDS: piperacillin/tazo 3.375gm/50ml 50 ML IV SCH ×2 (12:11→22:54)
--- NOTE | 2019-06-17 18:00 | NUR ---
Problems reprioritized. Patient report given, questions answered & plan of care reviewed with Michelle MCKEE/Mercy MCKEE.
--- NOTE | 2019-06-17 18:14 | NUR ---
Patient in room PCU 3009. I have received report from Svitlana MCKEE and had the opportunity to ask questions and assume patient care.
[2019-06-17] MEDS: lactobacillus rhamnosus 10,000 MMU CELLS/CAPSULE PO SCH (19:24)
[2019-06-18] VITALS (11 sets, daily range): BP systolic 104–126; BP diastolic 57–73
[2019-06-18 05:58] LABS: BASOPHILS # (AUTO) 0.1 X10'3 (0-0.2); EOSINOPHILS % (AUTO) 0.3 % (0-6); HEMOGLOBIN 7.3 g/dl (12.0-16.0); LYMPHOCYTES # (AUTO) 1.3 X10'3 (1.1-4.8); LYMPHOCYTES % (AUTO) 16.3 % (21-51); MEAN CORPUSCULAR HEMOGLOBIN 33.5 PG (27.0-31.0); MEAN CORPUSCULAR HGB CONC 33.5 g/dL (33.0-36.5); MEAN PLATELET VOLUME 10.6 FL (7.4-10.4); MONOCYTES # (AUTO) 0.8 X10'3 (0-0.9); MONOCYTES % (AUTO) 10.6 % (2-12); NEUTROPHILS # (AUTO) 5.6 X10'3 (1.8-7.7); NEUTROPHILS % (AUTO) 71.8 % (42-75); PLATELET COUNT 177 X10'3 (140-440); RED BLOOD COUNT 2.19 X10'6 (4.20-5.60); RED CELL DISTRIBUTION WIDTH 16.1 % (11.5-14.5); WHITE BLOOD COUNT 7.8 X10'3 (4.5-11.0)
[2019-06-18 06:06] LABS: HEMATOCRIT 21.9 % (35.0-45.0)
[2019-06-18 06:12] LABS: ALBUMIN 2.8 G/DL (3.4-5.0); ANION GAP 10 (8-16); BLOOD UREA NITROGEN 30 MG/DL (7-18); CALCIUM 8.4 MG/DL (8.5-10.1); CHLORIDE 107 MMOL/L (99-107); GLUCOSE 103 MG/DL (70-104); MAGNESIUM 2.1 MG/DL (1.5-2.4); POTASSIUM 4.2 MMOL/L (3.5-5.1); SODIUM 140 MMOL/L (135-145); TOTAL CARBON DIOXIDE 22.6 MMOL/L (24-32); eGFR 19 ML/MIN
--- NOTE | 2019-06-18 06:29 | NUR ---
Problems reprioritized. Patient report given, questions answered & plan of care reviewed with Rochelle MCKEE.
[2019-06-18] MEDS: K and/or MAG REPLACEMENT MC SCH (06:36)
[2019-06-18 07:11] LABS: ANISOCYTOSIS 1+; LARGE PLATELETS FEW; PLATELET ESTIMATE NORMAL
[2019-06-18 07:12] LABS: POIKILOCYTOSIS FEW
--- NOTE | 2019-06-18 07:42 | NUR ---
PAGED DR. YOUNG WITH AM LAB VALUES. HGB 7,3, AND HCT 21.9. Addendum: 06/18/19 at 1348 by Lorraine Nieves RN Amended: Links added.
[2019-06-18] MEDS: heparin, porcine 5000 units/ml vial SQ SCH ×2 (08:00→20:06)
[2019-06-18] MEDS ORDERED: prednisone 10mg tablet PO SCH (08:00)
[2019-06-18] MEDS: lactobacillus rhamnosus 10,000 MMU CELLS/CAPSULE PO SCH ×2 (08:36→20:05)
--- NOTE | 2019-06-18 08:44 | NUR ---
DR. YOUNG INTO SEE PATIENT . ORDERS PLACED AND NOTED.CONSENT FOR TRANSFUSION SIGNED BY PATIENT AFTER DR. YOUNG REVIEWED RISKS AND BENEFIT OF TRANSFUSION. Addendum: 06/18/19 at 1348 by Lorraine Nieves RN Amended: Links added.
[2019-06-18] MEDS: piperacillin/tazo 3.375gm/50ml 50 ML IV SCH ×2 (10:16→22:34)
[2019-06-18] MEDS ORDERED: prednisone 10mg tablet PO ONE (14:10)
[2019-06-18] MEDS: sodium bicarbonate 650mg tablet PO SCH ×2 (14:14→20:56)
--- NOTE | 2019-06-18 14:18 | NUR ---
DENIES PAIN ,SOB, AND OR NAUSEA.ONE UNIT OF P.RBC INFUSING AT THIS TIME NO SIGNS OR SYMPTOMS OF REACTION NOTED. HOB UP CALL LIGHT IN REACH.PATIENT'S DAUGHTER AT BEDSIDE. Addendum: 06/18/19 at 1422 by Lorraine Nieves RN Amended: Links added.
[2019-06-18] MEDS ORDERED: furosemide 40mg/4ml inj IV ONE (16:15)
[2019-06-19 02:00] VITALS: BP 116/67
[2019-06-19 04:58] LABS: BASOPHILS # (AUTO) 0.1 X10'3 (0-0.2); BASOPHILS % (AUTO) 1.2 % (0-1); EOSINOPHILS % (AUTO) 0.4 % (0-6); HEMATOCRIT 26.4 % (35.0-45.0); HEMOGLOBIN 8.9 g/dl (12.0-16.0); LYMPHOCYTES # (AUTO) 1.9 X10'3 (1.1-4.8); LYMPHOCYTES % (AUTO) 19.5 % (21-51); MEAN CORPUSCULAR HEMOGLOBIN 32.9 PG (27.0-31.0); MEAN CORPUSCULAR HGB CONC 33.7 g/dL (33.0-36.5); MEAN CORPUSCULAR VOLUME 97.7 FL (78-98); MEAN PLATELET VOLUME 10.4 FL (7.4-10.4); MONOCYTES % (AUTO) 10.5 % (2-12); NEUTROPHILS # (AUTO) 6.7 X10'3 (1.8-7.7); NEUTROPHILS % (AUTO) 68.4 % (42-75); PLATELET COUNT 181 X10'3 (140-440); RED BLOOD COUNT 2.71 X10'6 (4.20-5.60); RED CELL DISTRIBUTION WIDTH 16.9 % (11.5-14.5); WHITE BLOOD COUNT 9.8 X10'3 (4.5-11.0)
[2019-06-19 05:20] LABS: ANION GAP 13 (8-16); BLOOD UREA NITROGEN 40 MG/DL (7-18); BUN/CREATININE RATIO 14.9 (6.6-38.0); CHLORIDE 106 MMOL/L (99-107); CREATININE 2.69 MG/DL (0.40-0.90); GLUCOSE 98 MG/DL (70-104); MAGNESIUM 2.3 MG/DL (1.5-2.4); POTASSIUM 3.7 MMOL/L (3.5-5.1); SODIUM 142 MMOL/L (135-145); TOTAL CARBON DIOXIDE 23.1 MMOL/L (24-32); eGFR 17 ML/MIN
[2019-06-19 06:00] VITALS: BP 121/61
--- NOTE | 2019-06-19 06:45 | NUR ---
Patient in room PCU 3009. I have received report from RYLEE Ray and had the opportunity to ask questions and assume patient care.
[2019-06-19] MEDS: magnesium oxide 400mg tablet PO SCH (07:55)
[2019-06-19] MEDS: multivitamins, therapeutics tablet PO SCH (07:55)
[2019-06-19] MEDS: lactobacillus rhamnosus 10,000 MMU CELLS/CAPSULE PO SCH ×2 (07:55→21:03)
[2019-06-19] MEDS: pantoprazole 40mg Tablet.DR PO SCH (07:55)
[2019-06-19] MEDS: furosemide 40mg/4ml inj IV SCH (07:56)
[2019-06-19] MEDS: heparin, porcine 5000 units/ml vial SQ SCH ×2 (07:56→21:03)
[2019-06-19] MEDS: sodium bicarbonate 650mg tablet PO SCH ×3 (07:56→21:03)
[2019-06-19] MEDS: prednisone 10mg tablet PO SCH (07:56)
[2019-06-19] MEDS: vitamin D (cholecalciferol) 1,000 unit tablet PO SCH (07:56)
[2019-06-19] MEDS: K and/or MAG REPLACEMENT MC SCH (07:57)
[2019-06-19] MEDS: loratadine 10mg tablet PO SCH (07:57)
[2019-06-19] MEDS ORDERED: non-formulary drug (Lactobacillus Acidophilus (Probiotic) 1 CAP) PO SCH (08:00)
--- NOTE | 2019-06-19 09:00 | NUR ---
MD Johnson told the patient was c/o pain and asked if he wanted her to have pain meds when he went in to address with patient she denied pain , she has short term memory loss and seems to be forgetful of recent conversations.
--- NOTE | 2019-06-19 10:30 | NUR ---
Daughter at bedside with patient
[2019-06-19] MEDS: piperacillin/tazo 3.375gm/50ml 50 ML IV SCH ×2 (10:36→22:24)
[2019-06-19 11:00] VITALS: BP 134/70
--- NOTE | 2019-06-19 14:46 | NUR ---
pt in chair at bedside daughter visiting
[2019-06-19 15:00] VITALS: BP 135/78
[2019-06-19 18:00] VITALS: BP 116/76
[2019-06-19 23:00] VITALS: BP 100/51
[2019-06-20 03:00] VITALS: BP 113/63
[2019-06-20 05:17] LABS: BASOPHILS # (AUTO) 0.1 X10'3 (0-0.2); BASOPHILS % (AUTO) 1.2 % (0-1); EOSINOPHILS # (AUTO) 0.1 X10'3 (0-0.9); EOSINOPHILS % (AUTO) 0.6 % (0-6); HEMATOCRIT 27.2 % (35.0-45.0); HEMOGLOBIN 9.3 g/dl (12.0-16.0); LYMPHOCYTES # (AUTO) 2.3 X10'3 (1.1-4.8); LYMPHOCYTES % (AUTO) 21.4 % (21-51); MEAN CORPUSCULAR HEMOGLOBIN 33.1 PG (27.0-31.0); MEAN CORPUSCULAR HGB CONC 34.2 g/dL (33.0-36.5); MEAN CORPUSCULAR VOLUME 96.7 FL (78-98); MEAN PLATELET VOLUME 10.6 FL (7.4-10.4); MONOCYTES # (AUTO) 1.2 X10'3 (0-0.9); MONOCYTES % (AUTO) 11.3 % (2-12); NEUTROPHILS % (AUTO) 65.5 % (42-75); PLATELET COUNT 212 X10'3 (140-440); RED BLOOD COUNT 2.81 X10'6 (4.20-5.60); RED CELL DISTRIBUTION WIDTH 16.5 % (11.5-14.5); WHITE BLOOD COUNT 10.6 X10'3 (4.5-11.0)
[2019-06-20 05:45] LABS: ALBUMIN 3.2 G/DL (3.4-5.0); ANION GAP 12 (8-16); BLOOD UREA NITROGEN 45 MG/DL (7-18); BUN/CREATININE RATIO 16.4 (6.6-38.0); CALCIUM 9.4 MG/DL (8.5-10.1); CHLORIDE 105 MMOL/L (99-107); CREATININE 2.75 MG/DL (0.40-0.90); GLUCOSE 94 MG/DL (70-104); MAGNESIUM 2.5 MG/DL (1.5-2.4); POTASSIUM 3.6 MMOL/L (3.5-5.1); SODIUM 142 MMOL/L (135-145); TOTAL CARBON DIOXIDE 24.6 MMOL/L (24-32); eGFR 17 ML/MIN
[2019-06-20 06:00] VITALS: BP 129/82
[2019-06-20] MEDS: K and/or MAG REPLACEMENT MC SCH (06:28)
[2019-06-20 07:35] LABS: ANISOCYTOSIS 1+; HYPOCHROMASIA 1+; LARGE PLATELETS FEW; PLATELET ESTIMATE NORMAL; POIKILOCYTOSIS 1+; POLYCHROMASIA 1+
[2019-06-20] MEDS: lactobacillus rhamnosus 10,000 MMU CELLS/CAPSULE PO SCH (08:00)
[2019-06-20] MEDS: vitamin D (cholecalciferol) 1,000 unit tablet PO SCH (08:00)
[2019-06-20] MEDS: loratadine 10mg tablet PO SCH (08:00)
[2019-06-20] MEDS: pantoprazole 40mg Tablet.DR PO SCH (08:00)
[2019-06-20] MEDS: magnesium oxide 400mg tablet PO SCH (08:00)
[2019-06-20] MEDS: multivitamins, therapeutics tablet PO SCH (08:01)
[2019-06-20] MEDS: prednisone 10mg tablet PO SCH (08:04)
[2019-06-20] MEDS: furosemide 40mg/4ml inj IV SCH (08:05)
[2019-06-20] MEDS: sodium bicarbonate 650mg tablet PO SCH (08:06)
[2019-06-20] MEDS: heparin, porcine 5000 units/ml vial SQ SCH (08:06)
[2019-06-20] MEDS ORDERED: PRED10TA PO (10:41)
[2019-06-20] MEDS ORDERED: AMOX-580 PO (10:41)
[2019-06-20] MEDS: piperacillin/tazo 3.375gm/50ml 50 ML IV SCH (10:46)
--- NOTE | 2019-06-20 12:30 | NUR ---
Discharge Photos of lower extremities are taken prior to discharge.
--- NOTE | 2019-06-20 13:30 | NUR ---
Discharged Home accompanied by Daughter. All belongings are packed and taken home. Instructions are well understood by Daughter. Written information and teaching is provided. Comfort is maintained and wheelchair is used to deliver Pt. to private auto.
== END 2019-06-20 14:48 | disposition home or self-care (01) | DRG 872 ==
LOC: ER 20:49 → PCU 3S 06-17 01:59 → CMPBEDREQ 06-17 02:24
PROVIDERS: ADMIT Hospitalist; ATTEND Family Medicine
PROC: 30233N1 Transfusion of Nonautologous Red Blood Cells into Peripheral Vein, Percutaneous Approach (ICD-10-PCS; principal; 2019-06-18)
DX: A41.9 Sepsis, unspecified organism (principal); L03.115 Cellulitis of right lower limb; N17.9 Acute kidney failure, unspecified; N39.0 Urinary tract infection, site not specified; C34.90 Malignant neoplasm of unspecified part of unspecified bronchus or lung; L03.116 Cellulitis of left lower limb; N12 Tubulo-interstitial nephritis, not specified as acute or chronic; N10 Acute pyelonephritis; E86.0 Dehydration; D53.9 Nutritional anemia, unspecified; N18.9 Chronic kidney disease, unspecified; T50.1X5A Adverse effect of loop [high-ceiling] diuretics, initial encounter; Y92.89 Other specified places as the place of occurrence of the external cause; Z90.49 Acquired absence of other specified parts of digestive tract
CPT/HCPCS: 36415; 71045; 80048; 80053; 81001; 83605; 83735; 84145; 85025; 85610; 85730; 86885; 86900; 86901; 86920; 87040; 87081; 87088; 93970; 96365; 99285; G0378; J1644; J1940; J2543; J7030; J7512; P9016

== ENCOUNTER 2021-01-26 15:18 | Emergency (ER) | payer MEDICARE, BC ==
[~2021-01-26] VITALS: Ht 170.2 cm; Wt 75.0 kg
[~2021-01-26 15:18] MED LIST changes: -ACET500C5 PO; +AMOX-580 PO; -BISM262T15 PO; -DAPS100T2 PO; -DIPH-423 PO; -DOCU100T9 PO; -FER325T PO; -LACT1CAP26 PO; -NOR5T PO; -OMEP20CA11 PO; +OMEP20CA15 PO; -ONDA8TAB12 PO; +PRED10TA PO; -PRED10TA23 PO; -PRED5TAB49 PO; -PROP10TA10 PO; -SALI45SP MM; -WHEA98PO PO
[2021-01-26] MEDS ORDERED: LIDOcaine 1% W/epiNEPHrine 1:200,000 10ml vial IJ ONE (19:25)
[2021-01-26] MEDS ORDERED: diph,pertuss (acell), tet (DTaP-PEDs)/PF 0.5ml syringe IMVAC ONE (19:25)
[2021-01-26] MEDS ORDERED: TETanus/Pertussis (Acell)/Diphther VAC/PF (Tdap-Adult) 0.5ml syringe IMVAC ONE (19:40)
[2021-01-26 21:01] VITALS: BP 141/80
== END 2021-01-26 21:08 | disposition home or self-care (01) ==
LOC: ER 15:18
DX: S01.81XA Laceration without foreign body of other part of head, initial encounter (principal); S63.619A Unspecified sprain of unspecified finger, initial encounter; Z20.3 Contact with and (suspected) exposure to rabies; Z85.118 Personal history of other malignant neoplasm of bronchus and lung; Z90.89 Acquired absence of other organs; Z98.890 Other specified postprocedural states; Z79.2 Long term (current) use of antibiotics; Z79.899 Other long term (current) drug therapy; X58.XXXA Exposure to other specified factors, initial encounter; Y93.89 Activity, other specified; Y92.89 Other specified places as the place of occurrence of the external cause; Y99.8 Other external cause status
CPT/HCPCS: 12011; 70450; 72125; 73140; 90471; 90715; 99285